=== PATIENT | male | born 1985 | race Caucasian/White ===

== ENCOUNTER 2016-06-04 09:17 | Emergency (ER) | payer OTHER ==
[2016-06-04 09:31] VITALS: BP 130/74
--- NOTE | 2016-06-04 10:53 | UC ---
Ear Complaint HPI - HPI Summary HPI Summary: Pt presetns with c/o right ear pain and loss of hearing. Also c/o right eye redness and purulent discharge. He reports waking this morning with right eye crusted over. Reports positive history of OM - History of Current Complaint Chief Complaint: UCEye Stated Complaint: EAR PAIN EYE ISSUE Time Seen by Provider: 06/04/16 10:19 Hx Obtained From: Patient Onset/Duration: Sudden Onset, Lasting Days Severity Initially: Mild Severity Currently: Mild Pain Intensity: 0 Pain Scale Used: 0-10 Numeric Associated Signs/Symptoms: Positive: Hearing Loss, URI Symptoms Related History: Seasonal Allergies - Allergies/Home Medications Allergies/Adverse Reactions: Allergies Allergy/AdvReac Type Severity Reaction Status Date / Time Penicillins Allergy Severe Hives Verified 06/04/16 09:30 PMH/Surg Hx/FS Hx/Imm Hx Previously Healthy: Yes Endocrine History Of: Denies: Diabetes, Thyroid Disease Cardiovascular History Of: Denies: Cardiac Disorders, Hypertension Respiratory History Of: Denies: COPD, Asthma GI/ History Of: Denies: Ulcer - Surgical History Surgical History: Yes Surgery Procedure, Year, and Place: wisdom teeth removal 2 weeks ago - Family History Known Family History: Positive: Cardiac Disease, Other - cancer Family History: NON CONTRIBUTORY - Social History Alcohol Use: Rare Alcohol Amount: states hardly any Substance Use Type: None Smoking Status (MU): Never Smoked Tobacco Review of Systems Constitutional: Negative Skin: Negative Eyes: Drainage, Eye Redness ENT: Ear Ache - right ear, Other - hearing loss right ear Respiratory: Negative Cardiovascular: Negative Gastrointestinal: Negative Genitourinary: Negative Motor: Negative Neurovascular: Negative Musculoskeletal: Negative Neurological: Negative Psychological: Negative All Other Systems Reviewed And Are Negative: Yes Physical Exam Triage Information Reviewed: Yes Appearance: Well-Appearing Vital Signs: Initial Vital Signs Temp 97.4 F 06/04/16 09:26 Pulse 65 06/04/16 09:26 Resp 18 06/04/16 09:26 BP 130/74 06/04/16 09:26 Pulse Ox 99 06/04/16 09:26 Vital Signs Reviewed: Yes Eyes: Positive: Conjunctiva Inflamed, Discharge - purulent ENT: Positive: TM bulging, TM red - right Neck exam: Normal Respiratory Exam: Normal Cardiovascular Exam: Normal Musculoskeletal Exam: Normal Neurological Exam: Normal Psychological Exam: Normal Skin Exam: Normal Ear Complaint Course/Dx - Differential Dx/Diagnosis Differential Diagnosis/HQI/PQRI: Otitis Media, Other - conjunctivitis Provider Diagnoses: right ear TM. conjunctivitis right eye Discharge - Discharge Plan Condition: Stable Disposition: HOME Prescriptions: Azithromycin TAB* [Zithromax TAB (Z-DELFINA) 250 mg #6 tabs] 2 tab PO .TODAY, THEN 1 DAILY #1 delfina Polymyx/Trimethoprim OPTH* [Polytrim OPHTH*] 2 drop BOTH EYES Q3H #1 btl Patient Education Materials: Otitis Media (ED), Conjunctivitis (ED) Referrals: Juan Brewer MD [Primary Care Provider] -
== END 2016-06-04 10:32 | disposition home or self-care (01) ==
LOC: UCEAST 09:17
DX: H66.91 Otitis media, unspecified, right ear (principal); H10.31 Unspecified acute conjunctivitis, right eye; Z88.0 Allergy status to penicillin
CPT/HCPCS: 99212; G0463

== ENCOUNTER 2017-02-25 07:45 | Emergency (ER) | payer OTHER ==
[2017-02-25 07:56] VITALS: BP 127/82
--- NOTE | 2017-02-25 08:15 | UC ---
Respiratory Complaint HPI - HPI Summary HPI Summary: 3 days of fever weakness cough and fatigue - History of Current Complaint Hx Obtained From: Patient Onset/Duration: Sudden Onset, Lasting Days - 3, Still Present Timing: Constant Severity Initially: Moderate Severity Currently: Moderate Pain Intensity: 5 Pain Scale Used: 0-10 Numeric Character: Cough: Productive Aggravating Factors: Nothing Alleviating Factors: OTC Meds Associated Signs And Symptoms: Positive: Fever, Chills, URI <Africa Ryan - Last Filed: 02/25/17 09:24> <Sofy Thornton - Last Filed: 02/25/17 09:47> - History of Current Complaint Chief Complaint: UCRespiratory Stated Complaint: FEVER NAUSEA WEAK Time Seen by Provider: 02/25/17 08:04 - Allergies/Home Medications Allergies/Adverse Reactions: Allergies Allergy/AdvReac Type Severity Reaction Status Date / Time Penicillins Allergy Severe Hives Verified 06/04/16 09:30 Home Medications: Home Medications Acetaminophen TAB* [Tylenol TAB*] 02/25/17 [History] Allergy Pill 02/25/17 [History] Fluticasone NASAL SPRAY 50MCG* [Flonase NASAL SPRAY 50MCG*] 02/25/17 [History] PMH/Surg Hx/FS Hx/Imm Hx Previously Healthy: No - enviromental allergies, seizures as a child - Surgical History Surgical History: Yes Surgery Procedure, Year, and Place: wisdom teeth removal - Family History Known Family History: Positive: Cardiac Disease - Social History Occupation: Employed Full-time Lives: With Family Alcohol Use: Occasionally Alcohol Amount: states hardly any Substance Use Type: None Smoking Status (MU): Never Smoked Tobacco <Africa Ryan - Last Filed: 02/25/17 09:24> Review of Systems Constitutional: Fever, Chills, Fatigue Skin: Negative Eyes: Negative ENT: Negative Respiratory: Cough Cardiovascular: Negative Gastrointestinal: Negative Genitourinary: Negative Motor: Negative Neurovascular: Negative Musculoskeletal: Arthralgia, Myalgia Neurological: Negative Psychological: Negative Is Patient Immunocompromised?: No All Other Systems Reviewed And Are Negative: Yes <Africa Ryan - Last Filed: 02/25/17 09:24> Physical Exam Triage Information Reviewed: Yes Appearance: Well-Nourished, Ill-Appearing, Pain Distress Vital Signs: Initial Vital Signs Temp 98.3 F 02/25/17 07:50 Pulse 88 02/25/17 07:50 Resp 18 02/25/17 07:50 BP 127/82 02/25/17 07:50 Pulse Ox 100 02/25/17 07:50 Vital Signs Reviewed: Yes Eye Exam: Normal Eyes: Positive: Conjunctiva Clear ENT Exam: Normal ENT: Positive: Normal ENT inspection, Hearing grossly normal, Pharynx normal, TMs normal, Uvula midline. Negative: Nasal congestion, Nasal drainage, Tonsillar swelling, Tonsillar exudate, Trismus, Muffled voice, Hoarse voice, Dental tenderness, Sinus tenderness Dental Exam: Normal Neck exam: Normal Neck: Positive: Supple, Nontender, No Lymphadenopathy Respiratory Exam: Normal Respiratory: Positive: Chest non-tender, Lungs clear, Normal breath sounds, No respiratory distress, No accessory muscle use Cardiovascular Exam: Normal Cardiovascular: Positive: RRR, No Murmur, Pulses Normal, Brisk Capillary Refill Musculoskeletal Exam: Normal Musculoskeletal: Positive: Strength Intact, ROM Intact, No Edema Neurological Exam: Normal Neurological: Positive: Alert, Muscle Tone Normal Psychological Exam: Normal Skin Exam: Normal <Africa Ryan - Last Filed: 02/25/17 09:24> Vital Signs: Initial Vital Signs Temp 98.3 F 02/25/17 07:50 Pulse 88 02/25/17 07:50 Resp 18 02/25/17 07:50 BP 127/82 02/25/17 07:50 Pulse Ox 100 02/25/17 07:50 <Sofy Thornton - Last Filed: 02/25/17 09:47> UC Diagnostic Evaluation - Laboratory O2 Sat by Pulse Oximetry: 100 <Africa Ryan - Last Filed: 02/25/17 09:24> Respiratory Course/Dx - Course Course Of Treatment: tylenol, ibuprofen increase fluids, rest folow with pcp prn - Differential Dx/Diagnosis Provider Diagnoses: URI, Viral Syndrome <Africa Ryan - Last Filed: 02/25/17 09:24> Discharge <Africa Ryan - Last Filed: 02/25/17 09:24> <Sofy Thornton - Last Filed: 02/25/17 09:47> - Discharge Plan Condition: Stable Disposition: HOME Patient Education Materials: Upper Respiratory Infection (ED), Viral Syndrome ( ED) Forms: *Work Release Referrals: Juan Brewer MD [Primary Care Provider] - If Needed Attestation Statement User Type: Provider - I was available for consult. This patient was seen by the KATIANA. The patient was not presented to, seen by, or examined by me. -Daren <Sofy Thornton - Last Filed: 02/25/17 09:47>
== END 2017-02-25 08:55 | disposition home or self-care (01) ==
LOC: UCEAST 07:45
DX: B34.9 Viral infection, unspecified (principal)
CPT/HCPCS: 87502; 99211; G0463

== ENCOUNTER 2017-04-21 12:01 | Emergency (ER) | payer OTHER ==
--- NOTE | 2017-04-21 13:42 | UC ---
Skin Complaint HPI - History of Current Complaint Chief Complaint: UCLaceration Time Seen by Provider: 04/21/17 13:41 Stated Complaint: HAND LACS Hx Obtained From: Patient Onset/Duration: Sudden Onset - struck R hand with axe while splitting wood Skin Exposure Onset/Duration: Hours Ago - 1 Onset Severity: Moderate Current Severity: Mild Character: Swelling, Pain Aggravating Factor(s): Touch Alleviating Factor(s): Nothing Associated Signs & Symptoms: Positive: Negative - Allergy/Home Medications Allergies/Adverse Reactions: Allergies Allergy/AdvReac Type Severity Reaction Status Date / Time Penicillins Allergy Severe Hives Verified 06/04/16 09:30 Review of Systems Constitutional: Negative Respiratory: Negative Cardiovascular: Negative Musculoskeletal: Other: - hand sore Neurological: Negative Psychological: Negative All Other Systems Reviewed And Are Negative: Yes PMH/Surg Hx/FS Hx/Imm Hx Previously Healthy: Yes - Surgical History Surgical History: Yes Surgery Procedure, Year, and Place: wisdom teeth removal - Family History Known Family History: Positive: Cardiac Disease, Other - cancer Family History: NON CONTRIBUTORY - Social History Occupation: Employed Full-time Lives: With Family Alcohol Use: Occasionally Alcohol Amount: states hardly any Substance Use Type: None Smoking Status (MU): Never Smoked Tobacco - Immunization History Most Recent Tetanus Shot: <5y Physical Exam Triage Information Reviewed: Yes Appearance: Well-Appearing, No Pain Distress, Well-Nourished Vital Signs: Initial Vital Signs Temp 98.0 F 04/21/17 12:29 Pulse 103 04/21/17 12:29 Resp 18 04/21/17 12:29 BP 133/81 04/21/17 12:29 Pulse Ox 100 04/21/17 12:29 Vital Signs Reviewed: Yes Respiratory Exam: Normal Cardiovascular Exam: Normal Musculoskeletal Exam: Normal Musculoskeletal: Positive: Strength Intact, ROM Intact Psychological Exam: Normal Skin: Positive: Other - 1 cm lac dorsal R hand Laceration Repair - Laceration Repair 1 Description: Linear Laceration Size After Repair: Length (cm) - 1 cm, Width (mm) - 4, Depth (mm) - 4 Modified For Repair: No Type Injection: Local Anesthesia Used: 1.0% Lido Cleansing Completed Via Routine Prep: Yes Closure Material: Sutures Closure Method: Single Layer Suture Of: Skin Suture Type: Nylon - 5 #5 sutures Course/Dx - Differential Diagnoses - Skin Complaint Differential Diagnoses: Other - laceration avulsion - Diagnoses Provider Diagnoses: R hand laceration Discharge - Discharge Plan Condition: Stable Disposition: HOME Patient Education Materials: Laceration (ED) Referrals: Juan Brewer MD [Primary Care Provider] - Additional Instructions: keep wound clean and dry return for suture removal 10 days
[2017-04-21] MEDS ORDERED: Lidocaine 1% MPF* 2 ML VIAL INJ ONE (13:54)
[2017-04-21 14:43] VITALS: BP 138/84
== END 2017-04-21 14:45 | disposition home or self-care (01) ==
LOC: UCEAST 12:01
DX: S61.411A Laceration without foreign body of right hand, initial encounter (principal); W27.0XXA Contact with workbench tool, initial encounter; Y93.89 Activity, other specified; Y92.9 Unspecified place or not applicable; Z88.0 Allergy status to penicillin
CPT/HCPCS: 12001; 99211; G0463